=== PATIENT | female | born 1995 | race Caucasian/White ===

== ENCOUNTER 2020-07-10 17:49 | Emergency (ER) | payer OTHER ==
[2020-07-10] MEDS ORDERED: Ketorolac Tromethamine 30 MG/ML VIAL ONE (18:31)
== END 2020-07-10 18:50 | disposition home or self-care (01) ==
LOC: ERS 17:49
DX: S16.1XXA Strain of muscle, fascia and tendon at neck level, initial encounter (principal); V59.40XA Driver of pick-up truck or van injured in collision with unspecified motor vehicles in traffic accident, initial encounter
CPT/HCPCS: 99284; J1885